=== PATIENT | female | born 1995 | race Two or more races ===

== ENCOUNTER 2021-05-20 19:17 | Emergency (ER) | payer OTHER ==
[~2021-05-20] VITALS: Ht 162.6 cm; Wt 109.5 kg
[2021-05-20 20:36] LABS: GLUCOSE,POINT OF CARE 69 MG/DL (70-110)
[2021-05-20 21:08] LABS: BASOPHILS % (AUTO) 0.8 % (0.0-2.0); EOSINOPHILS % (AUTO) 0.1 % (1.0-6.0); HEMATOCRIT 38.6 % (36-46); HEMOGLOBIN 13.2 g/dL (12.0-16.0); LYMPHOCYTES % (AUTO) 20.1 % (22.0-44.0); MEAN CORPUSCULAR HGB CONC 34.1 G/dL (31.0-37.0); MEAN CORPUSCULAR VOLUME 85 fL (80-100); MONOCYTES # (AUTO) 0.8 K/uL (0.1-1.0); MONOCYTES % (AUTO) 7.7 % (2.0-9.0); NEUTROPHILS # (AUTO) 7.1 K/uL (1.8-7.7); NEUTROPHILS % (AUTO) 71.3 % (40.0-70.0); PLATELET COUNT (AUTO) 306 K/uL (150-450); RED BLOOD CELL COUNT(AUTO) 4.53 MIL/uL (4.00-5.20); RED CELL DISTRIBUTION WIDTH 13.2 % (11.5-14.5)
[2021-05-20 21:18] LABS: ANION GAP 6 mmol/L (8-16); CALCIUM, TOTAL 8.7 mg/dL (8.8-10.5); CARBON DIOXIDE 29 mmol/L (22-29); CHLORIDE 99 mmol/L (98-107); CREATININE 0.67 mg/dL (0.60-1.30); GLOMERULAR FILTR. RATE CALC > 60 mL/min (>60); GLUCOSE,RANDOM 94 mg/dL (70-110); POTASSIUM 3.7 mmol/L (3.5-5.1); SODIUM SERUM 134 mmol/L (136-145); UREA NITROGEN, BLOOD 9 mg/dL (7-18)
[2021-05-20 21:24] LABS: ALANINE AMINOTRANSFERASE 49 U/L (12-78); ALBUMIN 3.7 g/dL (3.4-5.0); ALKALINE PHOSPHATASE 72 U/L (46-116); ASPARTATE AMINOTRANSFERASE 38 U/L (15-37); BILIRUBIN,TOTAL 0.3 mg/dL (0.1-1.0); TOTAL PROTEIN, SERUM 8.4 g/dL (6.4-8.2)
[2021-05-20 21:32] LABS: B-TYPE NATRIURETIC PEPTIDE < 5 pg/mL (0-100)
[2021-05-20 22:05] VITALS: BP 126/77
== END 2021-05-21 03:14 | disposition home or self-care (01) ==
LOC: EMS 19:17
DX: R60.0 Localized edema (principal); F15.90 Other stimulant use, unspecified, uncomplicated; F11.90 Opioid use, unspecified, uncomplicated; F17.210 Nicotine dependence, cigarettes, uncomplicated
CPT/HCPCS: 80053; 82962; 83880; 85025; 93970; 99284

== ENCOUNTER 2021-05-21 01:43 | Inpatient (IN) | payer OTHER ==
[~2021-05-21] VITALS: Ht 170.2 cm; Wt 109.1 kg
[2021-05-21 02:20] LABS: BASOPHILS % (AUTO) 0.7 % (0.0-2.0); EOSINOPHILS % (AUTO) 0.1 % (1.0-6.0); HEMATOCRIT 39.4 % (36-46); HEMOGLOBIN 13.5 g/dL (12.0-16.0); LYMPHOCYTES % (AUTO) 20.3 % (22.0-44.0); MEAN CORPUSCULAR HEMOGLOBIN 29.3 pg (26.0-34.0); MEAN CORPUSCULAR HGB CONC 34.3 G/dL (31.0-37.0); MEAN CORPUSCULAR VOLUME 85 fL (80-100); MONOCYTES # (AUTO) 0.6 K/uL (0.1-1.0); MONOCYTES % (AUTO) 6.3 % (2.0-9.0); NEUTROPHILS % (AUTO) 72.6 % (40.0-70.0); PLATELET COUNT (AUTO) 302 K/uL (150-450); RED BLOOD CELL COUNT(AUTO) 4.62 MIL/uL (4.00-5.20); RED CELL DISTRIBUTION WIDTH 13.1 % (11.5-14.5)
[2021-05-21 02:24] LABS: COVID AG,FIA SOURCE NASOPHARYNGEAL
[2021-05-21 02:36] LABS: GLUCOSE,POINT OF CARE 81 MG/DL (70-110)
[2021-05-21 02:44] LABS: ALANINE AMINOTRANSFERASE 49 U/L (12-78); ALBUMIN 3.8 g/dL (3.4-5.0); ALKALINE PHOSPHATASE 71 U/L (46-116); ANION GAP 10 mmol/L (8-16); ASPARTATE AMINOTRANSFERASE 37 U/L (15-37); BILIRUBIN,TOTAL 0.4 mg/dL (0.1-1.0); CARBON DIOXIDE 29 mmol/L (22-29); CHLORIDE 98 mmol/L (98-107); GLUCOSE,RANDOM 95 mg/dL (70-110); HCG,QUANTITATIVE < 1 mIU/mL (0-6); POTASSIUM 3.7 mmol/L (3.5-5.1); SODIUM SERUM 137 mmol/L (136-145); TOTAL PROTEIN, SERUM 8.6 g/dL (6.4-8.2); UREA NITROGEN, BLOOD 11 mg/dL (7-18)
[2021-05-21 02:48] LABS: CALCIUM, TOTAL 8.7 mg/dL (8.8-10.5); CREATININE 0.75 mg/dL (0.60-1.30); GLOMERULAR FILTR. RATE CALC > 60 mL/min (>60)
[2021-05-21] MEDS ORDERED: ACETAMINOPHEN 325 MG TABLET PO PRN ×2 (05:00→11:45)
[2021-05-21] MEDS ORDERED: ONDANSETRON HCL 4 MG/2 ML VIAL IVP PRN ×2 (05:00→11:45)
[2021-05-21] MEDS ORDERED: 0.9% SODIUM CHLORIDE 10 ML SYRINGE IVP PRN (05:00)
[2021-05-21 06:34] VITALS: BP 93/61
[2021-05-21 06:47] LABS: AMPHET/METH SCREEN,URINE POSITIVE (NEGATIVE); BARBITURATE SCREEN, URINE NEGATIVE (NEGATIVE); BENZODIAZEPINES SCREEN,URINE NEGATIVE (NEGATIVE); CANNABINOID SCREEN,URINE NEGATIVE (NEGATIVE); COCAINE SCREEN,URINE NEGATIVE (NEGATIVE); METHADONE SCREEN, URINE NEGATIVE (NEGATIVE); OPIATE SCREEN,URINE NEGATIVE (NEGATIVE)
[2021-05-21 07:03] LABS: PHENCYCLIDINE SCREEN,URINE NEGATIVE (NEGATIVE)
[2021-05-21 07:24] VITALS: BP 97/61
[2021-05-21 11:00] VITALS: BP 107/65
[2021-05-21] MEDS ORDERED: SODIUM CHLORIDE 0.9% 1,000 ML IV ONE (11:45)
[2021-05-21] MEDS ORDERED: MORPHINE SULFATE 2 MG/ML SYRINGE IVP PRN (11:45)
[2021-05-21] MEDS ORDERED: NALOXONE HCL 1 MG/ML 2 ML SYRINGE IVP PRN (11:45)
[2021-05-21] MEDS ORDERED: HYDROCODONE/ACETAMINOPHEN 5-325 MG TABLET PO PRN (11:45)
[2021-05-21] MEDS ORDERED: MAGNESIUM HYDROXIDE SUSPENSION 30 ML UDCUP PO PRN (11:45)
[2021-05-21] MEDS ORDERED: ZOLPIDEM TARTRATE 5 MG TABLET PO PRN (11:45)
[2021-05-21] MEDS ORDERED: BISACODYL 10 MG RECTAL RECTAL SUPPOSITORY PR PRN (11:45)
[2021-05-21] MEDS ORDERED: HEPARIN SODIUM,PORCINE 5,000 UNITS/ML VIAL SQ SCH (16:00)
[2021-05-21 16:07] VITALS: BP 123/64
[2021-05-21] MEDS ORDERED: DOCUSATE SODIUM 100 MG CAPSULE PO SCH (21:00)
[2021-05-22] MEDS ORDERED: PANTOPRAZOLE SODIUM 40 MG DR TABLET PO SCH (09:00)
== END 2021-05-21 18:30 | disposition left against medical advice (07) | DRG 918 ==
LOC: EMS 01:44 → 5S 04:33
PROVIDERS: ADMIT Internal Medicine; ATTEND Internal Medicine
DX: T40.601A Poisoning by unspecified narcotics, accidental (unintentional), initial encounter (principal); T18.9XXA Foreign body of alimentary tract, part unspecified, initial encounter; X58.XXXA Exposure to other specified factors, initial encounter; Z87.891 Personal history of nicotine dependence; Y92.89 Other specified places as the place of occurrence of the external cause; Y93.89 Activity, other specified; Y99.8 Other external cause status
CPT/HCPCS: 74176; 80053; 82962; 84702; 85025; 99285; G0480; J1644; J7030